=== PATIENT | male | born 1975 | race Caucasian/White ===

== ENCOUNTER 2017-03-30 18:03 | Emergency (ER) | payer BC ==
[~2017-03-30] VITALS: Ht 175.3 cm; Wt 122.9 kg
[~2017-03-30 18:03] MED LIST: ATHENOL325 MG PO; CARAFATE100 MG/ML PO; CREATINE 50005000 MG PO; DAILY VITAMIN1 EAC4 PO; FLAX OIL1000 MG PO; MOTRIN800 MG PO; OMEPRAZOLE-BIC1 EAC1 PO; [UNRECOGNIZED DRUG - OTHER] PO; [UNRECOGNIZED DRUG - OTHER] PO
[2017-03-30 19:02] LABS: HEMATOCRIT 46.4 % (38.0-50.0); MCH 28.3 PG (29.0-34.0); MCHC 33.2 G/DL (30.0-36.0); MCV 85.1 FL (86-99); MEAN PLAT.VOLUME 9.9 uM^3 (9.0-12.4); PLATELET COUNT 273 K/uL (156-360); RBC DIS.WIDTH-CV 12.4 % (11.8-14.6); RBC DIS.WIDTH-SD 38.2 % (39-53); RED BLOOD COUNT 5.45 M/uL (4.00-5.50); WHITE BLOOD COUNT 13.5 K/uL (4.1-10.2)
[2017-03-30 19:12] LABS: CHLORIDE 105 mEq/L (99-109); POTASSIUM 3.8 mEq/L (3.7-5.4); SODIUM 138 mEq/L (136-147)
[2017-03-30 19:14] LABS: GLUCOSE 100 mg/dL (70-99)
[2017-03-30 19:16] LABS: ANION GAP 9 MEQ/L (2-14); TOTAL BILIRUBIN 0.6 mg/dL (0.0-1.0)
[2017-03-30 19:18] LABS: ALKALINE PHOSPHATASE 117 IU/L (3-129); GFR ESTIMATE (CALCULATED) > 59 mL/min/
[2017-03-30 19:19] LABS: UREA NITROGEN (BUN) 26 mg/dL (9-23)
[2017-03-30 19:21] LABS: LIPASE 39 U/L (1.0-51.0)
[2017-03-30 21:18] LABS: BASOPHIL COUNT 0.1 K/uL (0-0.1); EOSINOPHIL (%) 0.5 % (0-5); EOSINOPHIL COUNT 0.1 K/uL (0-0.3); IMMATURE GRANULOCYTE (%) 0.4 % (0.0-0.7); IMMATURE GRANULOCYTE COUNT 0.1 K/uL; INSTRUMENT ABS NEUTROPHIL CT 8.8 K/uL; LYMPHOCYTE COUNT 3.3 K/uL (1.0-2.8); MONOCYTE (%) 8.4 % (3-12); MONOCYTE COUNT 1.1 K/uL (0-0.8); NEUTROPHIL (%) 65.7 % (45-76); NEUTROPHIL COUNT 8.8 K/uL (1.8-6.4)
[2017-03-31 00:08] LABS: ADD MIUA? NO; BILIRUBIN NEGATIVE; BLOOD NEGATIVE; COLOR YELLOW ((YELLOW)); GLUCOSE (STRIP) NEGATIVE; KETONES NEGATIVE; LEUKOCYTES NEGATIVE; NITRITE NEGATIVE; PROTEIN (STRIP) NEGATIVE; UCUL ADDED? NO; UROBILINOGEN 0.2 MG/DL (0.2-1.0)
[2017-03-31] MEDS ORDERED: PERCOCET 5/31 TABLET PO (00:19)
[2017-03-31 00:28] LABS: SPECIFIC GRAVITY 1.065 (1.000-1.030)
[2017-03-31 00:39] VITALS: BP 140/93
== END 2017-03-31 00:41 | disposition home or self-care (01) ==
LOC: EME 18:03
DX: R10.31 Right lower quadrant pain (principal); K21.9 Gastro-esophageal reflux disease without esophagitis; Z98.890 Other specified postprocedural states; Z86.010 Personal history of colon polyps
CPT/HCPCS: 74177; 80053; 81003; 83690; 85025; 85027; 99281; 99284; J1885; J3010; J7030